=== PATIENT | female | born 1995 | race Caucasian/White ===

== ENCOUNTER 2017-10-18 01:09 | Outpatient (CLI) | END 2017-10-18 05:16 | disposition home health service (06) ==

== ENCOUNTER 2018-01-05 20:39 | Outpatient (CLI) | END 2018-01-06 | disposition home or self-care (01) ==

== ENCOUNTER 2018-01-08 10:06 | Inpatient (IN) | END 2018-01-11 15:00 | disposition home or self-care (01) | DRG 807 ==